=== PATIENT | female | born 1980 | race Caucasian/White ===

== ENCOUNTER 2022-11-09 01:06 | Emergency (ER) | payer OTHER ==
[2022-11-09 01:25] VITALS: BP 140/90; PULSE 88; RESP 18; TEMP 97.5; BMI 48.8
[2022-11-09] MEDS ORDERED: MAG HYDROX/AL HYDROX/SIMETH 30 ML UNIT-DOSE CUP ONE (03:43)
[2022-11-09 04:39] LABS: BASO % 0.4 % (0-2.0); EOS % 1.5 % (0-4.5); HEMATOCRIT 33.1 % (32.4-45.2); HEMOGLOBIN 10.7 GM/dL (10.7-15.3); LYMPH % 28.3 % (8-40); MCHC 32.4 g/dl (32.0-36.0); MEAN PLT VOLUME 8.9 fl (7.5-11.1); MONO % 5.5 % (3.8-10.2); NEUT % 64.3 % (42.8-82.8); PLATELET COUNT 190 10^3/uL (134-434); RBC 4.47 M/mm3 (3.60-5.2); RDW 17.1 % (11.6-15.6); WHITE BLOOD COUNT 5.1 K/mm3 (4.0-10.0)
[2022-11-09 04:47] LABS: INR 1.12 (0.83-1.09)
[2022-11-09 04:49] LABS: ACTIVATED PTT 33.3 SECONDS (25.2-36.5)
[2022-11-09 05:14] LABS: POTASSIUM 3.9 mmol/L (3.5-5.1)
[2022-11-09 05:17] LABS: BLOOD UREA NITROGEN 14.6 mg/dL (7-18)
[2022-11-09 05:20] LABS: CREATININE 0.6 mg/dL (0.55-1.3)
[2022-11-09 05:22] LABS: BILIRUBIN,TOTAL 0.5 mg/dL (0.2-1)
[2022-11-09] MEDS ORDERED: SUCRALFATE 1 GM TABLET (FP) ONE (05:25)
[2022-11-09] MEDS ORDERED: SUCRALFATE 1 GM/10 ML UNIT DOSE CUPS PO ONE (05:25)
[2022-11-09] MEDS ORDERED: MAG HYDROX/AL HYDROX/SIMETH 30 ML UNIT-DOSE CUP PO ONE (05:26)
== END 2022-11-09 05:57 | disposition home or self-care (01) ==
LOC: JER 01:06
DX: R07.2 Precordial pain (principal); R14.2 Eructation; R12 Heartburn
CPT/HCPCS: 36415; 71045-TC-FY; 80053; 83690; 84484; 84703; 85025; 85610; 85730; 93005; 93010; 99285-25